=== PATIENT | male | born 1955 | race African-American/Black ===

== ENCOUNTER 2018-02-28 03:33 | Inpatient (IN) | payer MEDICAID, OTHER ==
[~2018-02-28] VITALS: Ht 182.9 cm; Wt 73.5 kg
[2018-02-28] VITALS (71 sets, daily range): BP systolic 101–172; BP diastolic 63–109
[2018-02-28 05:13] LABS: HEMATOCRIT. 41.9 % (42.0-52.0); HEMOGLOBIN. 13.7 g/dL (14.0-18.0); MEAN CORPUSCULAR VOLUME 91.7 fL (80.0-94.0); MEAN PLATELET VOLUME 7.4 fl (7.4-10.4); PLATELET 323 x1000/uL (130-400); RED BLOOD CELL COUNT 4.57 mill/uL (4.7-6.1); RED CELL DISTRIBUTION WIDTH 13.1 % (11.6-14.6)
[2018-02-28 05:19] LABS: CHLORIDE 97 mEq/L (98-107)
[2018-02-28 05:23] LABS: ETHANOL BLOOD < 10 mg/dL
[2018-02-28 06:28] LABS: PLATELET ESTIMATE NORMAL
[2018-02-28] MEDS ORDERED: HYDRALAZINE 20MG/ML VIAL IV ONE ×2 (07:15→08:00)
[2018-02-28 07:32] LABS: CLARITY URINE CLEAR (CLEAR); COLOR URINE DARK YELLOW (YELLOW); KETONES URINE 1+ (NEGATIVE); LEUKOCYTE ESTERASE URINE NEGATIVE (NEGATIVE); NITRITE URINE NEGATIVE (NEGATIVE); OCCULT BLOOD URINE NEGATIVE (NEGATIVE); PH URINE 5.5 (4.5-8.0); PROTEIN URINE 2+ (NEGATIVE); SPECIFIC GRAVITY URINE 1.028 (1.005-1.030)
[2018-02-28 07:44] LABS: *AMPHETAMINES SCREEN URINE NEGATIVE (NEGATIVE); *COCAINE SCREEN URINE PRESUMTIVE POSITIVE (NEGATIVE)
[2018-02-28 07:45] LABS: *BARBITURATES SCREEN URINE NEGATIVE (NEGATIVE); *BENZODIAZEPINES SCREEN URINE NEGATIVE (NEGATIVE); CANNABINOID URINE SCREEN NEGATIVE (NEGATIVE); METHADONE URINE SCREEN NEGATIVE (NEGATIVE); OPIATES URINE SCREEN NEGATIVE (NEGATIVE); PHENCYCLIDINE URINE SCREEN PRESUMTIVE POSITIVE (NEGATIVE)
[2018-02-28] MEDS ORDERED: MANNITOL 12.5G (25%) VIAL 50ML IV ONE (08:00)
[2018-02-28] MEDS ORDERED: DEXAMETHASONE 4MG/ML 1ML VIAL IV ONE (08:00)
[2018-02-28] MEDS ORDERED: MANNITOL 12.5G (25%) VIAL 50ML IV SCH (08:15)
[2018-02-28] MEDS ORDERED: NICARDIPINE 100 MG in SODIUM CHLORIDE 0.9% 60 ML IV PRN (08:15)
[2018-02-28] MEDS ORDERED: MANNITOL 20% 100 ML IV SCH (08:15)
[2018-02-28 08:36] LABS: INR 1.1
[2018-02-28] MEDS ORDERED: DEXT 5%/LACTATED RINGERS 1,000 ML IV SCH (09:00)
[2018-02-28] MEDS ORDERED: LEVETIRACETAM 500MG PREMIX 100 ML IV SCH (09:00)
[2018-02-28] MEDS: NITROPRUSSIDE 50 MG in SODIUM CHLORIDE 0.9% 248 ML IV PRN (10:13)
[2018-02-28] MEDS: LEVETIRACETAM 500MG in SODIUM CHLORIDE 0.9% 100ML IV SCH ×2 (10:18→20:50)
[2018-02-28] MEDS ORDERED: ONDANSETRON HCL 4MG/2ML INJ IV PRN ×2 (11:00→12:15)
[2018-02-28] MEDS ORDERED: IPRATROPIUM/ALBUTEROL 0.5-3(2.5)MG/3ML NEB INH PRN (11:00)
[2018-02-28] MEDS: ACETAMINOPHEN 650MG SUPP PR PRN (11:19)
[2018-02-28] MEDS: DEXT 5%/LACTATED RINGERS 1,000 ML IV SCH (11:20)
[2018-02-28] MEDS: PANTOPRAZOLE SODIUM 40 MG/VIAL IV SCH (11:21)
[2018-02-28] MEDS: DEXAMETHASONE 4MG/ML 1ML VIAL IV SCH ×3 (11:22→23:26)
[2018-02-28 15:34] LABS: BG BASE EXCESS 0.2 mmol/L (-2.0-2.0); BG CARBOXYHEMOGLOBIN 0.8 % (0.5-1.5); BG DEOXYHEMOGLOBIN 3.8 % (0.0-5.0); BG FRACTION INSPIRED OXYGEN 32; BG HCO3 ACT 22.2 mmol/L (22.0-26.0); BG METHEMOGLOBIN 0.3 % (0.0-1.5); BG OXYGEN SATURATION 96.2 % (92.0-98.5); BG OXYHEMOGLOBIN 95.1 % (94.0-97.0); BG PCO2 28.9 mmHg (35.0-45.0); BG PH 7.504 (7.350-7.450); BG PO2 79.4 mmHg (75.0-100.0); BG SAMPLE SITE LEFT RADIAL; BG TOTAL HEMOGLOBIN 13.3 g/dL (12.0-18.0); BG VENT MODE NASAL CANNULA
[2018-02-28] MEDS ORDERED: MANNITOL 20% (20GM/100ML) BAG 500ML PREMIX IV NR (20:15)
[2018-03-01] VITALS (93 sets, daily range): BP systolic 105–173; BP diastolic 59–98
[2018-03-01] MEDS: NITROPRUSSIDE 50 MG in SODIUM CHLORIDE 0.9% 248 ML IV PRN ×2 (00:21→12:11)
[2018-03-01] MEDS: DEXT 5%/LACTATED RINGERS 1,000 ML IV SCH ×2 (00:22→15:07)
[2018-03-01] MEDS: DEXAMETHASONE 4MG/ML 1ML VIAL IV SCH ×4 (05:08→23:42)
[2018-03-01] MEDS ORDERED: MANNITOL 20% (20GM/100ML) BAG 500ML PREMIX IV NR ×2 (06:00)
[2018-03-01 09:19] LABS: BG BASE EXCESS 0.7 mmol/L (-2.0-2.0); BG CARBOXYHEMOGLOBIN 0.7 % (0.5-1.5); BG DEOXYHEMOGLOBIN 5.3 % (0.0-5.0); BG FRACTION INSPIRED OXYGEN 28; BG METHEMOGLOBIN 0.3 % (0.0-1.5); BG OXYGEN SATURATION 94.6 % (92.0-98.5); BG OXYHEMOGLOBIN 93.7 % (94.0-97.0); BG PCO2 30.1 mmHg (35.0-45.0); BG PH 7.501 (7.350-7.450); BG PO2 71.5 mmHg (75.0-100.0); BG SAMPLE SITE RIGHT RADIAL; BG TOTAL HEMOGLOBIN 12.8 g/dL (12.0-18.0); BG VENT MODE NASAL CANNULA
[2018-03-01] MEDS: PANTOPRAZOLE SODIUM 40 MG/VIAL IV SCH (09:26)
[2018-03-01] MEDS: LEVETIRACETAM 500MG in SODIUM CHLORIDE 0.9% 100ML IV SCH ×2 (09:27→20:41)
[2018-03-01] MEDS ORDERED: LIDOCAINE HCL/EPINEPHRINE 1%-EPI 1:100,000 20 ML VIAL INFIL NR (11:45)
[2018-03-01 12:06] LABS: HEMATOCRIT. 36.4 % (42.0-52.0); HEMOGLOBIN. 11.8 g/dL (14.0-18.0); MEAN CORPUSCULAR HEMOGLOBIN 29.9 pg (28.0-32.0); MEAN CORPUSCULAR VOLUME 92.6 fL (80.0-94.0); MEAN PLATELET VOLUME 7.4 fl (7.4-10.4); PLATELET 321 x1000/uL (130-400); RED BLOOD CELL COUNT 3.94 mill/uL (4.7-6.1)
[2018-03-01 12:13] LABS: CHLORIDE 103 mEq/L (98-107)
[2018-03-01 12:21] LABS: CREATINE KINASE 586 IU/L (39-308)
[2018-03-01 12:41] LABS: HEPATITIS B SURFACE ANTIGEN NEGATIVE
[2018-03-01 13:11] LABS: HEPATITIS A AB IGM NEGATIVE (NEGATIVE)
[2018-03-01 13:29] LABS: PLATELET ESTIMATE NORMAL
[2018-03-02] VITALS (82 sets, daily range): BP systolic 106–162; BP diastolic 70–98
[2018-03-02] MEDS: DEXT 5%/LACTATED RINGERS 1,000 ML IV SCH ×2 (03:40→20:13)
[2018-03-02] MEDS: NITROPRUSSIDE 50 MG in SODIUM CHLORIDE 0.9% 248 ML IV PRN (04:01)
[2018-03-02] MEDS: DEXAMETHASONE 4MG/ML 1ML VIAL IV SCH ×3 (05:47→17:46)
[2018-03-02] MEDS: PANTOPRAZOLE SODIUM 40 MG/VIAL IV SCH (09:11)
[2018-03-02] MEDS: LEVETIRACETAM 500MG in SODIUM CHLORIDE 0.9% 100ML IV SCH ×2 (09:11→20:39)
[2018-03-02 10:11] LABS: HIV SCREEN 4G Non Reactive (Non Reactive)
[2018-03-02] MEDS ORDERED: CEFAZOLIN 1000MG PREMIX 50 ML IV SCH (12:00)
[2018-03-02] MEDS: CEFEPIME 2,000 MG in DEXT 5% WATER 100 ML IV SCH (13:01)
[2018-03-02] MEDS: METRONIDAZOLE 500 MG PREMIX 100 ML IV SCH ×2 (13:52→21:39)
[2018-03-03] VITALS (82 sets, daily range): BP systolic 108–215; BP diastolic 22–114
[2018-03-03] MEDS: DEXAMETHASONE 4MG/ML 1ML VIAL IV SCH ×4 (00:31→18:12)
[2018-03-03] MEDS: CEFEPIME 2,000 MG in DEXT 5% WATER 100 ML IV SCH ×2 (03:10→13:35)
[2018-03-03] MEDS: NITROPRUSSIDE 50 MG in SODIUM CHLORIDE 0.9% 248 ML IV PRN ×3 (03:12→14:47)
[2018-03-03] MEDS: ACETAMINOPHEN 650MG SUPP PR PRN (04:18)
[2018-03-03] MEDS: METRONIDAZOLE 500 MG PREMIX 100 ML IV SCH ×3 (05:30→21:17)
[2018-03-03 06:41] LABS: HEMOGLOBIN. 11.9 g/dL (14.0-18.0); MEAN CORPUSCULAR HEMOGLOBIN 30.5 pg (28.0-32.0); MEAN CORPUSCULAR VOLUME 92.5 fL (80.0-94.0); MEAN PLATELET VOLUME 7.3 fl (7.4-10.4); PLATELET 326 x1000/uL (130-400); RED BLOOD CELL COUNT 3.89 mill/uL (4.7-6.1); RED CELL DISTRIBUTION WIDTH 13.2 % (11.6-14.6)
[2018-03-03 06:56] LABS: PHOSPHORUS 2.4 mg/dL (2.5-4.9)
[2018-03-03] MEDS: DEXT 5%/LACTATED RINGERS 1,000 ML IV SCH (07:30)
[2018-03-03] MEDS: LEVETIRACETAM 500MG in SODIUM CHLORIDE 0.9% 100ML IV SCH ×2 (08:37→20:42)
[2018-03-03] MEDS: PANTOPRAZOLE SODIUM 40 MG/VIAL IV SCH (08:37)
[2018-03-03 12:45] LABS: PLATELET ESTIMATE NORMAL
[2018-03-03] MEDS: LISINOPRIL 40MG TABLET NG SCH (13:35)
[2018-03-03] MEDS: AMLODIPINE 10MG TABLET NG SCH (13:35)
[2018-03-03] MEDS: CLONIDINE HCL 0.3MG/24HR PATCH TD SCH (14:47)
[2018-03-03] MEDS: CLONIDINE 0.1MG TABLET PO PRN (21:10)
[2018-03-04] VITALS (94 sets, daily range): BP systolic 103–174; BP diastolic 56–103
[2018-03-04] MEDS: CEFEPIME 2,000 MG in DEXT 5% WATER 100 ML IV SCH ×2 (03:38→13:17)
[2018-03-04] MEDS: DEXAMETHASONE 4MG/ML 1ML VIAL IV SCH ×4 (05:40→18:21)
[2018-03-04] MEDS: METRONIDAZOLE 500 MG PREMIX 100 ML IV SCH ×3 (05:41→20:46)
[2018-03-04] MEDS: NITROPRUSSIDE 50 MG in SODIUM CHLORIDE 0.9% 248 ML IV PRN (05:57)
[2018-03-04] MEDS: PANTOPRAZOLE SODIUM 40 MG/VIAL IV SCH (08:35)
[2018-03-04] MEDS: AMLODIPINE 10MG TABLET NG SCH (08:36)
[2018-03-04] MEDS: CLONIDINE 0.1MG TABLET PO PRN (08:36)
[2018-03-04] MEDS: LISINOPRIL 40MG TABLET NG SCH (08:36)
[2018-03-04] MEDS: LEVETIRACETAM 500MG in SODIUM CHLORIDE 0.9% 100ML IV SCH ×2 (08:51→20:47)
[2018-03-04 08:56] LABS: HEMATOCRIT. 37.1 % (42.0-52.0); HEMOGLOBIN. 12.3 g/dL (14.0-18.0); MEAN CORPUSCULAR HEMOGLOBIN 30.6 pg (28.0-32.0); MEAN CORPUSCULAR VOLUME 92.1 fL (80.0-94.0); PLATELET 295 x1000/uL (130-400); RED BLOOD CELL COUNT 4.03 mill/uL (4.7-6.1); RED CELL DISTRIBUTION WIDTH 12.9 % (11.6-14.6)
[2018-03-04 09:02] LABS: CHLORIDE 103 mEq/L (98-107)
[2018-03-04] MEDS: LORAZEPAM 2MG/ML CPJ IV PRN (11:07)
[2018-03-04] MEDS ORDERED: SODIUM PHOS,M-BASIC-D-BASIC 10 MM in DEXT 5% WATER 246.6667 ML IV NR (13:00)
[2018-03-04 14:19] LABS: PLATELET ESTIMATE NORMAL
[2018-03-04] MEDS: ATORVASTATIN CALCIUM 10MG TABLET PO SCH (20:46)
[2018-03-05] VITALS (61 sets, daily range): BP systolic 118–157; BP diastolic 72–100
[2018-03-05] MEDS: CEFEPIME 2,000 MG in DEXT 5% WATER 100 ML IV SCH ×2 (01:10→15:37)
[2018-03-05] MEDS: METRONIDAZOLE 500 MG PREMIX 100 ML IV SCH ×3 (04:46→23:42)
[2018-03-05 05:29] LABS: HEMATOCRIT. 38.7 % (42.0-52.0); HEMOGLOBIN. 12.5 g/dL (14.0-18.0); MEAN CORPUSCULAR HEMOGLOBIN 29.8 pg (28.0-32.0); MEAN CORPUSCULAR VOLUME 91.9 fL (80.0-94.0); PLATELET 333 x1000/uL (130-400); RED BLOOD CELL COUNT 4.21 mill/uL (4.7-6.1); RED CELL DISTRIBUTION WIDTH 12.9 % (11.6-14.6)
[2018-03-05 05:34] LABS: CHLORIDE 101 mEq/L (98-107)
[2018-03-05] MEDS: DEXAMETHASONE 4MG/ML 1ML VIAL IV SCH ×4 (06:02→19:05)
[2018-03-05] MEDS: LEVETIRACETAM 500MG in SODIUM CHLORIDE 0.9% 100ML IV SCH ×2 (09:36→23:42)
[2018-03-05] MEDS: PANTOPRAZOLE SODIUM 40 MG/VIAL IV SCH (09:36)
[2018-03-05] MEDS: LISINOPRIL 40MG TABLET NG SCH (09:36)
[2018-03-05] MEDS: AMLODIPINE 10MG TABLET NG SCH (09:36)
[2018-03-05 09:44] LABS: NUCLEATED RED BLOOD CELLS 1 /100 WBC; PLATELET ESTIMATE NORMAL
[2018-03-05 11:37] LABS: PHOSPHORUS 2.6 mg/dL (2.5-4.9)
[2018-03-05] MEDS: ATORVASTATIN CALCIUM 10MG TABLET PO SCH (22:29)
[2018-03-06] VITALS (13 sets, daily range): BP systolic 106–149; BP diastolic 56–87
[2018-03-06] MEDS: DEXAMETHASONE 4MG/ML 1ML VIAL IV SCH ×4 (00:49→18:24)
[2018-03-06] MEDS: CEFEPIME 2,000 MG in DEXT 5% WATER 100 ML IV SCH ×2 (02:34→14:11)
[2018-03-06] MEDS: LORAZEPAM 2MG/ML CPJ IV PRN ×2 (02:34→23:21)
[2018-03-06] MEDS: METRONIDAZOLE 500 MG PREMIX 100 ML IV SCH ×3 (05:59→21:37)
[2018-03-06] MEDS ORDERED: CLONIDINE HCL 0.1MG/24HR PATCH TD SCH (09:00)
[2018-03-06] MEDS: PANTOPRAZOLE SODIUM 40 MG/VIAL IV SCH (10:31)
[2018-03-06] MEDS: LEVETIRACETAM 500MG in SODIUM CHLORIDE 0.9% 100ML IV SCH ×2 (10:31→21:37)
[2018-03-06] MEDS: LISINOPRIL 40MG TABLET NG SCH (16:42)
[2018-03-06] MEDS: AMLODIPINE 10MG TABLET NG SCH (16:43)
[2018-03-06] MEDS: NEOMY SULF/BACITRAC ZN/POLY OINT 28GM TOP SCH (21:37)
[2018-03-06] MEDS: ATORVASTATIN CALCIUM 10MG TABLET PO SCH (21:38)
[2018-03-07] VITALS (12 sets, daily range): BP systolic 100–146; BP diastolic 63–81
[2018-03-07] MEDS: DEXAMETHASONE 4MG/ML 1ML VIAL IV SCH ×4 (00:25→17:49)
[2018-03-07] MEDS: CEFEPIME 2,000 MG in DEXT 5% WATER 100 ML IV SCH ×2 (02:40→14:45)
[2018-03-07] MEDS: METRONIDAZOLE 500 MG PREMIX 100 ML IV SCH ×3 (05:50→21:18)
[2018-03-07] MEDS: LEVETIRACETAM 500MG in SODIUM CHLORIDE 0.9% 100ML IV SCH ×2 (08:50→20:30)
[2018-03-07] MEDS: PANTOPRAZOLE SODIUM 40 MG/VIAL IV SCH (08:50)
[2018-03-07] MEDS: AMLODIPINE 10MG TABLET NG SCH (08:51)
[2018-03-07] MEDS: LISINOPRIL 40MG TABLET NG SCH (08:55)
[2018-03-07] MEDS: NEOMY SULF/BACITRAC ZN/POLY OINT 28GM TOP SCH ×2 (09:28→20:15)
[2018-03-07] MEDS: ATORVASTATIN CALCIUM 10MG TABLET PO SCH (20:15)
[2018-03-08] VITALS (13 sets, daily range): BP systolic 107–161; BP diastolic 45–78
[2018-03-08] MEDS: DEXAMETHASONE 4MG/ML 1ML VIAL IV SCH ×5 (00:09→23:53)
[2018-03-08] MEDS: CEFEPIME 2,000 MG in DEXT 5% WATER 100 ML IV SCH ×2 (01:47→13:39)
[2018-03-08] MEDS: METRONIDAZOLE 500 MG PREMIX 100 ML IV SCH ×3 (05:23→21:51)
[2018-03-08] MEDS: AMLODIPINE 10MG TABLET NG SCH (09:18)
[2018-03-08] MEDS: LISINOPRIL 40MG TABLET NG SCH (09:18)
[2018-03-08] MEDS: PANTOPRAZOLE SODIUM 40 MG/VIAL IV SCH (09:21)
[2018-03-08] MEDS: NEOMY SULF/BACITRAC ZN/POLY OINT 28GM TOP SCH (09:21)
[2018-03-08] MEDS: LEVETIRACETAM 500MG in SODIUM CHLORIDE 0.9% 100ML IV SCH ×2 (09:49→20:46)
[2018-03-08] MEDS: ATORVASTATIN CALCIUM 10MG TABLET PO SCH (20:51)
[2018-03-09] VITALS (8 sets, daily range): BP systolic 105–142; BP diastolic 66–103
[2018-03-09] MEDS: CEFEPIME 2,000 MG in DEXT 5% WATER 100 ML IV SCH ×2 (01:50→13:10)
[2018-03-09] MEDS: DEXAMETHASONE 4MG/ML 1ML VIAL IV SCH ×3 (05:47→17:00)
[2018-03-09] MEDS: METRONIDAZOLE 500 MG PREMIX 100 ML IV SCH ×2 (05:49→13:10)
[2018-03-09] MEDS: AMLODIPINE 10MG TABLET NG SCH (08:38)
[2018-03-09] MEDS: LISINOPRIL 40MG TABLET NG SCH (08:38)
[2018-03-09] MEDS: PANTOPRAZOLE SODIUM 40 MG/VIAL IV SCH (08:41)
[2018-03-09] MEDS: LEVETIRACETAM 500MG in SODIUM CHLORIDE 0.9% 100ML IV SCH ×2 (09:22→21:46)
[2018-03-09] MEDS: ATORVASTATIN CALCIUM 10MG TABLET PO SCH (22:00)
[2018-03-10] VITALS (8 sets, daily range): BP systolic 104–128; BP diastolic 31–74
[2018-03-10] MEDS: DEXAMETHASONE 4MG/ML 1ML VIAL IV SCH ×4 (00:08→17:50)
[2018-03-10] MEDS: PANTOPRAZOLE SODIUM 40 MG/VIAL IV SCH (08:51)
[2018-03-10] MEDS: LEVETIRACETAM 500MG in SODIUM CHLORIDE 0.9% 100ML IV SCH ×2 (08:52→21:09)
[2018-03-10] MEDS: CLONIDINE HCL 0.3MG/24HR PATCH TD SCH (08:55)
[2018-03-10] MEDS: AMLODIPINE 10MG TABLET NG SCH (08:55)
[2018-03-10] MEDS: LISINOPRIL 40MG TABLET NG SCH (08:56)
[2018-03-10] MEDS: ATORVASTATIN CALCIUM 10MG TABLET PO SCH (21:09)
[2018-03-11] VITALS (8 sets, daily range): BP systolic 104–114; BP diastolic 69–78
[2018-03-11] MEDS: DEXAMETHASONE 4MG/ML 1ML VIAL IV SCH ×4 (00:13→18:14)
[2018-03-11] MEDS: PANTOPRAZOLE SODIUM 40 MG/VIAL IV SCH (08:45)
[2018-03-11] MEDS: LEVETIRACETAM 500MG in SODIUM CHLORIDE 0.9% 100ML IV SCH ×2 (08:46→21:28)
[2018-03-11] MEDS: LISINOPRIL 40MG TABLET NG SCH (08:54)
[2018-03-11] MEDS: AMLODIPINE 10MG TABLET NG SCH (08:54)
[2018-03-11] MEDS: ATORVASTATIN CALCIUM 10MG TABLET PO SCH (21:28)
[2018-03-12] MEDS: DEXAMETHASONE 4MG/ML 1ML VIAL IV SCH ×3 (00:05→11:43)
[2018-03-12 04:00] VITALS: BP 115/77
[2018-03-12 08:00] VITALS: BP 122/79
[2018-03-12] MEDS: AMLODIPINE 10MG TABLET NG SCH (09:40)
[2018-03-12] MEDS: LISINOPRIL 40MG TABLET NG SCH (09:40)
[2018-03-12] MEDS: PANTOPRAZOLE SODIUM 40 MG/VIAL IV SCH (09:40)
[2018-03-12] MEDS: LEVETIRACETAM 500MG in SODIUM CHLORIDE 0.9% 100ML IV SCH (09:40)
[2018-03-12 11:03] LABS: CHLORIDE 94 mEq/L (98-107)
[2018-03-12 11:04] LABS: HEMATOCRIT. 40.3 % (42.0-52.0); HEMOGLOBIN. 12.9 g/dL (14.0-18.0); MEAN CORPUSCULAR HEMOGLOBIN 29.4 pg (28.0-32.0); MEAN CORPUSCULAR VOLUME 92.1 fL (80.0-94.0); MEAN PLATELET VOLUME 7.5 fl (7.4-10.4); PLATELET 266 x1000/uL (130-400); RED BLOOD CELL COUNT 4.38 mill/uL (4.7-6.1); RED CELL DISTRIBUTION WIDTH 12.9 % (11.6-14.6)
[2018-03-12 12:00] VITALS: BP 106/64
[2018-03-12 13:55] LABS: PLATELET ESTIMATE NORMAL
[2018-03-12 16:00] VITALS: BP 99/58
[2018-03-12 20:00] VITALS: BP 99/56
[2018-03-13] VITALS: BP 95/55
[2018-03-13] MEDS: ATORVASTATIN CALCIUM 10MG TABLET PO SCH ×2 (00:35→21:19)
[2018-03-13] MEDS: LEVETIRACETAM 500MG in SODIUM CHLORIDE 0.9% 100ML IV SCH ×2 (00:35→09:32)
[2018-03-13 04:00] VITALS: BP 92/58
[2018-03-13] MEDS: AMLODIPINE 10MG TABLET NG SCH (09:00)
[2018-03-13] MEDS: LISINOPRIL 40MG TABLET NG SCH (09:00)
[2018-03-13] MEDS: PANTOPRAZOLE SODIUM 40 MG/VIAL IV SCH (09:32)
[2018-03-13] MEDS: DEXAMETHASONE 4MG/ML 1ML VIAL IV SCH ×2 (12:12→21:19)
[2018-03-13 20:00] VITALS: BP 104/57
[2018-03-13 20:21] VITALS: BP 104/87
== END 2018-03-13 22:50 | DRG 55 ==
LOC: ER 03:33 → MICUNO 07:58 → EDBD 07:58 → EDBEDREQ 08:10 → ENRESERV 08:28 → MICUSO 03-03 19:00 → 5EST 03-05 13:15 → 6EST 03-12 00:38
PROVIDERS: ADMIT Internal Medicine; ATTEND Internal Medicine
DX: S06.5X9A Traumatic subdural hemorrhage with loss of consciousness of unspecified duration, initial encounter (principal); J96.01 Acute respiratory failure with hypoxia; G93.40 Encephalopathy, unspecified; E87.3 Alkalosis; D64.9 Anemia, unspecified; E87.1 Hypo-osmolality and hyponatremia; I10 Essential (primary) hypertension; F14.10 Cocaine abuse, uncomplicated; F16.10 Hallucinogen abuse, uncomplicated; X58.XXXA Exposure to other specified factors, initial encounter; Y93.89 Activity, other specified; Z78.1 Physical restraint status; Y92.89 Other specified places as the place of occurrence of the external cause; Y99.8 Other external cause status
CPT/HCPCS: 36415; 36600; 71045; 80048; 80061; 80305; 82140; 82375; 82550; 82805; 82962; 83036; 83605; 83735; 84100; 84134; 84145; 84484; 85007; 85027; 86705; 86709; 86803; 86850; 86900; 87070; 87075; 87077; 87186; 87340; 87389; 92610; 93005; 93970; 96374; 99291; A6261; C9113; G0482; J0360; J0690; J0692; J1100; J1953; J2060; J2150; J3490; J7040; J7050; J7060; J7070; J7121; A4315

== ENCOUNTER 2018-08-12 17:16 | Emergency (ER) | payer OTHER ==
[~2018-08-12] VITALS: Ht 167.6 cm; Wt 72.0 kg
[2018-08-12] MEDS ORDERED: LEVETIRACETAM 500MG PREMIX 100 ML IV ONE ×2 (17:45→21:30)
[2018-08-12 18:01] LABS: BASOPHILS % 0.4 % (0.0-2.0); EOSINOPHILS % 3.2 % (0.0-5.0); HEMOGLOBIN. 12.8 g/dL (14.0-18.0); LYMPHOCYTES % 33.2 % (20.0-50.0); MEAN CORPUSCULAR HEMOGLOBIN 26.7 pg (28.0-32.0); MEAN CORPUSCULAR VOLUME 81.3 fL (80.0-94.0); MONOCYTES % 9.2 % (2.0-8.0); PLATELET 283 x1000/uL (130-400); RED BLOOD CELL COUNT 4.79 mill/uL (4.7-6.1); RED CELL DISTRIBUTION WIDTH 14.4 % (11.6-14.6)
[2018-08-12 18:05] LABS: CHLORIDE 93 mEq/L (98-107)
[2018-08-12 18:09] LABS: ETHANOL BLOOD < 10 mg/dL
[2018-08-12] MEDS ORDERED: SODIUM CHLORIDE 0.9% 1,000 ML IV ONE ×2 (18:15→21:30)
[2018-08-12 18:18] LABS: CARBAMAZEPINE < 0.5 ug/mL (4-12); PHENOBARBITAL < 2.1 ug/mL (15.0-40.0); VALPROIC ACID < 3.0 ug/mL (50-100)
[2018-08-12 21:51] LABS: CLARITY URINE CLEAR (CLEAR); COLOR URINE YELLOW (YELLOW); KETONES URINE NEGATIVE (NEGATIVE); LEUKOCYTE ESTERASE URINE NEGATIVE (NEGATIVE); NITRITE URINE NEGATIVE (NEGATIVE); OCCULT BLOOD URINE NEGATIVE (NEGATIVE); PH URINE 7.5 (4.5-8.0); PROTEIN URINE NEGATIVE (NEGATIVE); SPECIFIC GRAVITY URINE 1.008 (1.005-1.030); UROBILINOGEN URINE 0.2 E.U./dL (0.2-1.0)
[2018-08-12 22:02] LABS: *AMPHETAMINES SCREEN URINE NEGATIVE (NEGATIVE); *BARBITURATES SCREEN URINE NEGATIVE (NEGATIVE); *BENZODIAZEPINES SCREEN URINE NEGATIVE (NEGATIVE); *COCAINE SCREEN URINE NEGATIVE (NEGATIVE)
[2018-08-12 22:03] LABS: CANNABINOID URINE SCREEN NEGATIVE (NEGATIVE); METHADONE URINE SCREEN NEGATIVE (NEGATIVE); OPIATES URINE SCREEN NEGATIVE (NEGATIVE); PHENCYCLIDINE URINE SCREEN NEGATIVE (NEGATIVE)
[2018-08-12 23:38] VITALS: BP 128/79
== END 2018-08-12 23:55 | disposition short-term general hospital (02) ==
LOC: ER 17:16
DX: R56.9 Unspecified convulsions (principal); E87.1 Hypo-osmolality and hyponatremia; K21.9 Gastro-esophageal reflux disease without esophagitis; I10 Essential (primary) hypertension
CPT/HCPCS: 36415; 70450; 71045; 80053; 80156; 80165; 80184; 80185; 80305; 80320; 81003; 85025; 96365; 96366; 99285; J1953; J7030; 99284; G0480

== ENCOUNTER 2018-12-08 15:26 | Inpatient (IN) | payer MEDICAID, OTHER ==
[~2018-12-08] VITALS: Ht 167.6 cm; Wt 90.8 kg
[2018-12-08] MEDS ORDERED: LEVETIRACETAM 500MG PREMIX 100 ML IV ONE (15:45)
[2018-12-08] MEDS ORDERED: LORAZEPAM 2MG/ML CPJ IV ONE (15:45)
[2018-12-08 16:29] LABS: CHLORIDE 102 mEq/L (98-107)
[2018-12-08 16:32] LABS: BASOPHILS % 0.9 % (0.0-2.0); EOSINOPHILS % 3.4 % (0.0-5.0); HEMATOCRIT. 44.9 % (42.0-52.0); HEMOGLOBIN. 14.1 g/dL (14.0-18.0); LYMPHOCYTES % 25.4 % (20.0-50.0); MEAN CORPUSCULAR HEMOGLOBIN 25.9 pg (28.0-32.0); MEAN CORPUSCULAR VOLUME 82.2 fL (80.0-94.0); MEAN PLATELET VOLUME 7.3 fl (7.4-10.4); MONOCYTES % 8.3 % (2.0-8.0); PLATELET 242 x1000/uL (130-400); RED BLOOD CELL COUNT 5.46 mill/uL (4.7-6.1); RED CELL DISTRIBUTION WIDTH 15.9 % (11.6-14.6)
[2018-12-08 16:33] LABS: ETHANOL BLOOD < 10 mg/dL
[2018-12-08 19:01] LABS: *AMPHETAMINES SCREEN URINE NEGATIVE (NEGATIVE); *BARBITURATES SCREEN URINE NEGATIVE (NEGATIVE)
[2018-12-08 19:02] LABS: *BENZODIAZEPINES SCREEN URINE PRESUMTIVE POSITIVE (NEGATIVE); *COCAINE SCREEN URINE NEGATIVE (NEGATIVE); CANNABINOID URINE SCREEN NEGATIVE (NEGATIVE); METHADONE URINE SCREEN NEGATIVE (NEGATIVE); OPIATES URINE SCREEN NEGATIVE (NEGATIVE); PHENCYCLIDINE URINE SCREEN NEGATIVE (NEGATIVE)
[2018-12-08 21:37] VITALS: BP 139/89
[2018-12-08] MEDS ORDERED: LEVETIRACETAM 500 MG in SODIUM CHLORIDE 0.9% 100 ML IV SCH (22:30)
[2018-12-08] MEDS ORDERED: KEPP500 PO (22:51)
[2018-12-08] MEDS ORDERED: DOCU-138 PO (22:51)
[2018-12-08] MEDS ORDERED: TOPUD PO (22:51)
[2018-12-08] MEDS ORDERED: ATOR20TA PO (22:51)
[2018-12-08] MEDS ORDERED: GABA-531 PO (22:51)
[2018-12-08] MEDS ORDERED: LISI10TA5 PO (22:51)
[2018-12-08] MEDS ORDERED: ASPI-1158 PO (22:51)
[2018-12-08] MEDS ORDERED: ZOLP5TAB2 PO (22:51)
[2018-12-09] VITALS: BP 145/88
[2018-12-09] MEDS ORDERED: ACETAMINOPHEN 650MG SUPP PR PRN ×2 (00:30→02:15)
[2018-12-09] MEDS: SODIUM CHLORIDE 0.9% 1,000 ML IV SCH ×2 (00:49→14:43)
[2018-12-09] MEDS: LORAZEPAM 2MG/ML CPJ IV PRN ×2 (02:07→20:57)
[2018-12-09] MEDS ORDERED: HYDRALAZINE 20MG/ML VIAL IV PRN (02:15)
[2018-12-09] MEDS ORDERED: ONDANSETRON HCL 4MG/2ML INJ IV PRN (02:15)
[2018-12-09] MEDS ORDERED: DIPHENHYDRAMINE 50MG/ML VIAL IV PRN (02:15)
[2018-12-09] MEDS ORDERED: IPRATROPIUM/ALBUTEROL 0.5-3(2.5)MG/3ML NEB HHN PRN (02:15)
[2018-12-09 04:00] VITALS: BP 135/84
[2018-12-09] MEDS: LEVOFLOXACIN 500MG PREMIX 100 ML IV SCH (04:17)
[2018-12-09 08:00] VITALS: BP_SYST 125; BP_SYST 142; BP_DIAS 75; BP_DIAS 89
[2018-12-09] MEDS: FAMOTIDINE 20MG/2ML VIAL IV SCH ×2 (08:59→20:58)
[2018-12-09] MEDS ORDERED: LEVETIRACETAM 500 MG in SODIUM CHLORIDE 0.9% 100 ML IV SCH (09:00)
[2018-12-09] MEDS ORDERED: INFLUENZA VIRUS VACCINE(AFLURIA) 0.5ML SYR IM ONE (10:00)
[2018-12-09 12:00] VITALS: BP 136/60
[2018-12-09 15:50] LABS: CHLORIDE 104 mEq/L (98-107)
[2018-12-09 15:58] LABS: PHOSPHORUS 2.9 mg/dL (2.5-4.9)
[2018-12-09 16:00] VITALS: BP 147/69
[2018-12-09 16:31] LABS: BASOPHILS % 0.5 % (0.0-2.0); EOSINOPHILS % 1.3 % (0.0-5.0); HEMATOCRIT. 44.7 % (42.0-52.0); HEMOGLOBIN. 14.5 g/dL (14.0-18.0); LYMPHOCYTES % 17.6 % (20.0-50.0); MEAN CORPUSCULAR HEMOGLOBIN 25.9 pg (28.0-32.0); MEAN CORPUSCULAR VOLUME 79.5 fL (80.0-94.0); MEAN PLATELET VOLUME 7.7 fl (7.4-10.4); MONOCYTES % 12.1 % (2.0-8.0); NEUTROPHILS % 68.5 % (40.0-76.0); PLATELET 216 x1000/uL (130-400); RED BLOOD CELL COUNT 5.62 mill/uL (4.7-6.1); RED CELL DISTRIBUTION WIDTH 15.7 % (11.6-14.6)
[2018-12-09] MEDS: ENOXAPARIN 30MG/0.3ML SYR SUBCUT SCH (18:37)
[2018-12-09 20:00] VITALS: BP 137/87
[2018-12-09] MEDS: ATORVASTATIN CALCIUM 40MG TABLET PO SCH (20:58)
[2018-12-09] MEDS: LEVETIRACETAM 1,000 MG in SODIUM CHLORIDE 0.9% 100 ML IV SCH (20:58)
[2018-12-09] MEDS: MIRTAZAPINE 15MG TABLET PO SCH (20:58)
[2018-12-09] MEDS: GABAPENTIN 300MG CAPSULE PO SCH (22:17)
[2018-12-10] VITALS: BP 132/93
[2018-12-10 04:00] VITALS: BP 137/85
[2018-12-10] MEDS: LORAZEPAM 2MG/ML CPJ IV PRN ×3 (04:15→20:53)
[2018-12-10] MEDS: GABAPENTIN 300MG CAPSULE PO SCH ×3 (05:20→21:11)
[2018-12-10] MEDS: ENOXAPARIN 30MG/0.3ML SYR SUBCUT SCH ×2 (05:21→18:56)
[2018-12-10 08:00] VITALS: BP 134/82
[2018-12-10] MEDS: LISINOPRIL 10MG TABLET PO SCH (08:22)
[2018-12-10] MEDS: ASPIRIN 81MG TABLET PO SCH (08:23)
[2018-12-10] MEDS: LEVOFLOXACIN 500MG PREMIX 100 ML IV SCH (08:23)
[2018-12-10] MEDS: FAMOTIDINE 20MG/2ML VIAL IV SCH ×2 (08:23→20:53)
[2018-12-10] MEDS: LEVETIRACETAM 1,000 MG in SODIUM CHLORIDE 0.9% 100 ML IV SCH ×2 (09:51→22:05)
[2018-12-10 12:00] VITALS: BP 141/90
[2018-12-10 16:00] VITALS: BP 136/91
[2018-12-10 20:00] VITALS: BP 105/73
[2018-12-10] MEDS: ATORVASTATIN CALCIUM 40MG TABLET PO SCH (20:53)
[2018-12-10] MEDS: MIRTAZAPINE 15MG TABLET PO SCH (20:53)
[2018-12-11] VITALS: BP 141/84
[2018-12-11] MEDS: LORAZEPAM 2MG/ML CPJ IV PRN ×2 (02:47→11:15)
[2018-12-11 04:00] VITALS: BP 115/79
[2018-12-11] MEDS: GABAPENTIN 300MG CAPSULE PO SCH ×2 (05:35→14:00)
[2018-12-11] MEDS: ENOXAPARIN 30MG/0.3ML SYR SUBCUT SCH ×2 (05:36→18:00)
[2018-12-11 08:00] VITALS: BP 116/80
[2018-12-11] MEDS: LISINOPRIL 10MG TABLET PO SCH (08:57)
[2018-12-11] MEDS: LEVETIRACETAM 1,000 MG in SODIUM CHLORIDE 0.9% 100 ML IV SCH (08:57)
[2018-12-11] MEDS: FAMOTIDINE 20MG/2ML VIAL IV SCH (08:57)
[2018-12-11] MEDS: ASPIRIN 81MG TABLET PO SCH (08:57)
[2018-12-11] MEDS: LEVOFLOXACIN 500MG PREMIX 100 ML IV SCH (08:57)
[2018-12-11 12:00] VITALS: BP 126/84
[2018-12-11 16:00] VITALS: BP 123/72
[2018-12-11 18:34] VITALS: BP 123/72
== END 2018-12-11 19:50 | DRG 53 ==
LOC: ER 15:26 → 8WST 20:30 → ENRESERV 20:54
PROVIDERS: ADMIT Internal Medicine; ATTEND Internal Medicine
DX: G40.909 Epilepsy, unspecified, not intractable, without status epilepticus (principal); I11.9 Hypertensive heart disease without heart failure; D64.9 Anemia, unspecified; K21.9 Gastro-esophageal reflux disease without esophagitis; Z86.73 Personal history of transient ischemic attack (TIA), and cerebral infarction without residual deficits; F31.9 Bipolar disorder, unspecified; E78.00 Pure hypercholesterolemia, unspecified
CPT/HCPCS: 36415; 71045; 80048; 80305; 80320; 83036; 83735; 84100; 92610; 93005; 93970; 96365; 97162; 99291; C1893; J1200; J1650; J1953; J1956; J2060; J3490; J7030; J7050; A4315; G0480

== ENCOUNTER 2019-08-28 21:23 | Inpatient (IN) | payer MEDICAID ==
[~2019-08-28] VITALS: Ht 167.6 cm; Wt 72.6 kg
[~2019-08-28 21:23] MED LIST: ASPI-1158 PO; ATOR20TA PO; DOCU-138 PO; GABA-531 PO; KEPP500 PO; LISI10TA5 PO; TOPUD PO; ZOLP5TAB2 PO
[2019-08-28] MEDS ORDERED: SODIUM CHLORIDE 0.9% 1,000 ML IV ONE (21:37)
[2019-08-28] MEDS ORDERED: LEVETIRACETAM 1000MG/100ML 100 ML IV ONE (21:45)
[2019-08-28 22:44] LABS: BASOPHILS % 0.6 % (0.0-2.0); EOSINOPHILS % 3.9 % (0.0-5.0); HEMATOCRIT. 41.6 % (42.0-52.0); HEMOGLOBIN. 13.8 g/dL (14.0-18.0); LYMPHOCYTES % 24.1 % (20.0-50.0); MEAN CORPUSCULAR HEMOGLOBIN 28.5 pg (28.0-32.0); MEAN PLATELET VOLUME 7.6 fl (7.4-10.4); MONOCYTES % 12.9 % (2.0-8.0); NEUTROPHILS % 58.5 % (40.0-76.0); PLATELET 148 x1000/uL (130-400); RED BLOOD CELL COUNT 4.84 mill/uL (4.7-6.1); RED CELL DISTRIBUTION WIDTH 16.4 % (11.6-14.6)
[2019-08-28 22:54] LABS: INR 1.1; PROTHROMBIN TIME 11.9 sec (9.6-11.0)
[2019-08-28 23:11] LABS: CHLORIDE 105 mEq/L (98-107)
[2019-08-28 23:15] LABS: ETHANOL BLOOD < 10 mg/dL
[2019-08-29 01:06] LABS: CLARITY URINE CLEAR (CLEAR); COLOR URINE YELLOW (YELLOW); KETONES URINE NEGATIVE (NEGATIVE); LEUKOCYTE ESTERASE URINE NEGATIVE (NEGATIVE); NITRITE URINE NEGATIVE (NEGATIVE); OCCULT BLOOD URINE NEGATIVE (NEGATIVE); PROTEIN URINE NEGATIVE (NEGATIVE); UROBILINOGEN URINE 0.2 E.U./dL (0.2-1.0)
[2019-08-29 01:16] LABS: *AMPHETAMINES SCREEN URINE NEGATIVE (NEGATIVE); *BARBITURATES SCREEN URINE NEGATIVE (NEGATIVE); *BENZODIAZEPINES SCREEN URINE PRESUMTIVE POSITIVE (NEGATIVE)
[2019-08-29 01:17] LABS: *COCAINE SCREEN URINE NEGATIVE (NEGATIVE); CANNABINOID URINE SCREEN NEGATIVE (NEGATIVE); METHADONE URINE SCREEN NEGATIVE (NEGATIVE); OPIATES URINE SCREEN NEGATIVE (NEGATIVE); PHENCYCLIDINE URINE SCREEN NEGATIVE (NEGATIVE)
[2019-08-29] MEDS ORDERED: ONDANSETRON HCL 4MG/2ML INJ IV PRN (05:15)
[2019-08-29] MEDS ORDERED: MAGNESIUM/ALUMINUM HYDROXIDE/SIMETHICONE 30ML UDC PO PRN (05:15)
[2019-08-29] MEDS ORDERED: CLONIDINE 0.1MG TABLET PO PRN (05:15)
[2019-08-29] MEDS ORDERED: HYDROCODONE/ACETAMINOPHEN 5/325MG TABLET PO PRN (05:15)
[2019-08-29] MEDS ORDERED: ACETAMINOPHEN 325MG TABLET PO PRN (05:15)
[2019-08-29] MEDS ORDERED: GUAIFENESIN 200MG/10ML SUGAR FREE UDC PO PRN (05:15)
[2019-08-29] MEDS ORDERED: LORAZEPAM 2MG/ML CPJ IV PRN (05:15)
[2019-08-29] MEDS ORDERED: DOCUSATE SODIUM 100MG CAPSULE PO PRN (05:15)
[2019-08-29] MEDS: SODIUM CHLORIDE 0.45% 1,000 ML IV SCH ×2 (07:12→23:57)
[2019-08-29] MEDS: ENOXAPARIN 40MG/0.4ML SYR SUBCUT SCH (09:00)
[2019-08-29] MEDS: LISINOPRIL 10MG TABLET PO SCH (10:00)
[2019-08-29] MEDS: LEVETIRACETAM 500MG PREMIX 100 ML IV SCH ×2 (10:00→21:00)
[2019-08-29] MEDS ORDERED: CEFTRIAXONE 1 G PREMIX 50 ML IV NR (12:30)
[2019-08-29] MEDS ORDERED: AZITHROMYCIN 500 MG in DEXT 5% WATER 250 ML IV SCH (12:30)
[2019-08-29 23:50] VITALS: BP 129/70
[2019-08-30 04:00] VITALS: BP 108/59
[2019-08-30 07:30] LABS: BASOPHILS % 0.7 % (0.0-2.0); EOSINOPHILS % 3.4 % (0.0-5.0); HEMATOCRIT. 45.8 % (42.0-52.0); HEMOGLOBIN. 15.5 g/dL (14.0-18.0); LYMPHOCYTES % 26.4 % (20.0-50.0); MEAN CORPUSCULAR HEMOGLOBIN 28.7 pg (28.0-32.0); MEAN CORPUSCULAR VOLUME 84.8 fL (80.0-94.0); MEAN PLATELET VOLUME 7.8 fl (7.4-10.4); MONOCYTES % 14.2 % (2.0-8.0); NEUTROPHILS % 55.3 % (40.0-76.0); PLATELET 154 x1000/uL (130-400); RED BLOOD CELL COUNT 5.39 mill/uL (4.7-6.1); RED CELL DISTRIBUTION WIDTH 16.4 % (11.6-14.6)
[2019-08-30 07:43] LABS: CHLORIDE 108 mEq/L (98-107)
[2019-08-30 08:00] VITALS: BP 148/87
[2019-08-30] MEDS: LISINOPRIL 10MG TABLET PO SCH (09:57)
[2019-08-30] MEDS: ENOXAPARIN 40MG/0.4ML SYR SUBCUT SCH (09:58)
[2019-08-30] MEDS: LEVETIRACETAM 500MG PREMIX 100 ML IV SCH ×2 (09:58→20:46)
[2019-08-30 12:00] VITALS: BP 138/70
[2019-08-30] MEDS: AZITHROMYCIN 500 MG in DEXT 5% WATER 250 ML IV SCH (12:00)
[2019-08-30] MEDS ORDERED: DEXAMETHASONE 2MG TABLET PO SCH (13:00)
[2019-08-30] MEDS: CEFTRIAXONE 1 G PREMIX 50 ML IV SCH (15:48)
[2019-08-30] MEDS: SODIUM CHLORIDE 0.45% 1,000 ML IV SCH (15:49)
[2019-08-30 16:00] VITALS: BP 154/90
[2019-08-30 20:00] VITALS: BP 127/95
[2019-08-31] VITALS: BP 136/86
[2019-08-31 04:00] VITALS: BP 130/80
[2019-08-31 08:00] VITALS: BP 133/64
[2019-08-31] MEDS: LEVETIRACETAM 500MG PREMIX 100 ML IV SCH ×2 (09:00→09:02)
[2019-08-31] MEDS: AZITHROMYCIN 500 MG in DEXT 5% WATER 250 ML IV SCH (09:00)
[2019-08-31] MEDS: CEFTRIAXONE 1 G PREMIX 50 ML IV SCH ×2 (09:00→15:32)
[2019-08-31] MEDS: ENOXAPARIN 40MG/0.4ML SYR SUBCUT SCH (09:01)
[2019-08-31] MEDS: LISINOPRIL 10MG TABLET PO SCH (09:02)
[2019-08-31] MEDS: SODIUM CHLORIDE 0.45% 1,000 ML IV SCH (09:05)
[2019-08-31 12:00] VITALS: BP 128/79
[2019-08-31] MEDS: LEVETIRACETAM 500MG TABLET PO SCH ×2 (14:27→21:47)
[2019-08-31] MEDS ORDERED: CEFTRIAXONE SODIUM 500 MG/VIAL IM SCH (15:30)
[2019-08-31 16:00] VITALS: BP 118/86
[2019-08-31 20:00] VITALS: BP 148/85
[2019-09-01] VITALS: BP 143/79
[2019-09-01 04:00] VITALS: BP 136/72
[2019-09-01 08:00] VITALS: BP 141/91
[2019-09-01] MEDS: ENOXAPARIN 40MG/0.4ML SYR SUBCUT SCH (08:26)
[2019-09-01] MEDS: LISINOPRIL 10MG TABLET PO SCH (08:26)
[2019-09-01] MEDS: LEVETIRACETAM 500MG TABLET PO SCH ×3 (08:26→21:00)
[2019-09-01] MEDS: AZITHROMYCIN 500 MG in DEXT 5% WATER 250 ML IV SCH (08:32)
[2019-09-01 12:00] VITALS: BP 141/82
[2019-09-01 16:00] VITALS: BP 151/84
[2019-09-01] MEDS: CEFTRIAXONE 1 G PREMIX 50 ML IV SCH (16:24)
[2019-09-01] MEDS: SODIUM CHLORIDE 0.45% 1,000 ML IV SCH (16:26)
[2019-09-01 20:00] VITALS: BP 118/79
[2019-09-01] MEDS: LEVETIRACETAM 500MG PREMIX 100 ML IV SCH (21:21)
[2019-09-02] VITALS: BP 128/81
[2019-09-02 04:00] VITALS: BP 120/80
[2019-09-02 08:05] VITALS: BP 123/75
[2019-09-02] MEDS: ENOXAPARIN 40MG/0.4ML SYR SUBCUT SCH (08:33)
[2019-09-02] MEDS: LISINOPRIL 10MG TABLET PO SCH (08:33)
[2019-09-02] MEDS: LEVETIRACETAM 500MG TABLET PO SCH ×2 (08:33→21:00)
[2019-09-02] MEDS: LEVETIRACETAM 500MG PREMIX 100 ML IV SCH ×2 (08:33→22:21)
[2019-09-02] MEDS ORDERED: AZITHROMYCIN 500 MG TABLET PO SCH (09:00)
[2019-09-02] MEDS: SODIUM CHLORIDE 0.45% 1,000 ML IV SCH (11:16)
[2019-09-02 12:18] VITALS: BP 114/55
[2019-09-02] MEDS: CEFTRIAXONE 1 G PREMIX 50 ML IV SCH (15:57)
[2019-09-02 16:10] VITALS: BP 106/82
[2019-09-02 20:00] VITALS: BP 147/81
[2019-09-03] VITALS: BP 111/61
[2019-09-03] MEDS: SODIUM CHLORIDE 0.45% 1,000 ML IV SCH (02:21)
[2019-09-03 04:00] VITALS: BP 134/77
[2019-09-03 08:00] VITALS: BP 123/79
[2019-09-03] MEDS: LEVETIRACETAM 500MG PREMIX 100 ML IV SCH (09:04)
[2019-09-03] MEDS: LISINOPRIL 10MG TABLET PO SCH (09:07)
[2019-09-03] MEDS: ENOXAPARIN 40MG/0.4ML SYR SUBCUT SCH (09:08)
[2019-09-03 12:00] VITALS: BP 120/76
[2019-09-03 13:27] VITALS: BP 120/76
[2019-09-03 16:00] VITALS: BP 110/54
== END 2019-09-03 18:15 | DRG 720 ==
LOC: ER 21:23 → 7WST 08-29 00:47 → ENRESERV 08-29 20:48 → CANRESERV 08-29 20:48 → ENRESERV 08-29 21:49
PROVIDERS: ADMIT Hospitalist; ATTEND Hospitalist
DX: A41.89 Other specified sepsis (principal); U07.1 COVID-19; I25.10 Atherosclerotic heart disease of native coronary artery without angina pectoris; I10 Essential (primary) hypertension; D64.9 Anemia, unspecified; J12.89 Other viral pneumonia; G40.409 Other generalized epilepsy and epileptic syndromes, not intractable, without status epilepticus; Z79.1 Long term (current) use of non-steroidal anti-inflammatories (NSAID); Z79.82 Long term (current) use of aspirin; Z79.899 Other long term (current) drug therapy; E44.0 Moderate protein-calorie malnutrition
CPT/HCPCS: 36415; 71045; 80053; 80165; 80305; 80320; 81003; 82962; 83880; 84484; 85025; 93005; 93970; 99285; J0456; J0696; J1650; J1953; J2060; J7030; J7060; C9803-CS; G0480; U0003-CS

== ENCOUNTER 2021-06-07 10:16 | Inpatient (IN) | payer MEDICARE, MEDICAID ==
[~2021-06-07] VITALS: Ht 172.7 cm; Wt 83.5 kg
[~2021-06-07 10:16] MED LIST changes: -ASPI-1158 PO; -ATOR20TA PO; -DOCU-138 PO; +ESCI20TA PO; +FAMO-135 PO; -GABA-531 PO; +GABA300C PO; -KEPP500 PO; +LEVE1000 PO; +LISI-652 PO; -LISI10TA5 PO; -TOPUD PO; +VALP250C3 PO; -ZOLP5TAB2 PO
[2021-06-07] MEDS ORDERED: LEVETIRACETAM 1000MG PREMIX 100 ML IV ONE (10:30)
[2021-06-07 11:44] LABS: BASOPHILS % 0.6 % (0.0-2.0); EOSINOPHILS % 4.1 % (0.0-5.0); HEMATOCRIT. 42.2 % (42.0-52.0); HEMOGLOBIN. 13.9 g/dL (14.0-18.0); LYMPHOCYTES % 32.1 % (20.0-50.0); MEAN CORPUSCULAR HEMOGLOBIN 27.7 pg (28.0-32.0); MEAN CORPUSCULAR VOLUME 84.1 fL (80.0-94.0); MEAN PLATELET VOLUME 7.9 fl (7.4-10.4); MONOCYTES % 9.1 % (2.0-8.0); NEUTROPHILS % 54.1 % (40.0-76.0); PLATELET 244 x1000/uL (130-400); RED BLOOD CELL COUNT 5.01 mill/uL (4.7-6.1); RED CELL DISTRIBUTION WIDTH 13.4 % (11.6-14.6)
[2021-06-07 11:47] LABS: CHLORIDE 110 mEq/L (98-107)
[2021-06-07 11:51] LABS: ETHANOL BLOOD < 10 mg/dL
[2021-06-07] MEDS ORDERED: CLONIDINE 0.1MG TABLET PO PRN (17:30)
[2021-06-07] MEDS ORDERED: ACETAMINOPHEN 325MG TABLET PO PRN ×2 (17:30)
[2021-06-07] MEDS ORDERED: GUAIFENESIN 200MG/10ML SUGAR FREE UDC PO PRN (17:30)
[2021-06-07] MEDS ORDERED: DOCUSATE SODIUM 100MG CAPSULE PO PRN (17:30)
[2021-06-07] MEDS ORDERED: ONDANSETRON HCL 4MG/2ML INJ IV PRN (17:30)
[2021-06-07] MEDS ORDERED: KETOROLAC 15MG/ML VIAL IV PRN (17:30)
[2021-06-07] MEDS ORDERED: LORAZEPAM 2MG/ML CPJ IV PRN (17:30)
[2021-06-07] MEDS ORDERED: IPRATROPIUM/ALBUTEROL 0.5-3(2.5)MG/3ML NEB NEB PRN (17:30)
[2021-06-07] MEDS ORDERED: MAGNESIUM/ALUMINUM HYDROXIDE/SIMETHICONE 30ML UDC PO PRN (17:30)
[2021-06-07] MEDS ORDERED: NITROGLYCERIN 0.4MG TABLET SL SL PRN (17:30)
[2021-06-07] MEDS: ENOXAPARIN 40MG/0.4ML SYR SUBCUT SCH (18:00)
[2021-06-07 18:12] LABS: T4 FREE 0.9 ng/dL (0.76-1.46)
[2021-06-07 18:39] LABS: FOLIC ACID (FOLATE) SERUM 9.1 ng/mL (>5.38)
[2021-06-07] MEDS ORDERED: ZOLPIDEM TARTRATE 5MG TABLET PO PRN (21:00)
[2021-06-07 22:00] VITALS: BP 119/77
[2021-06-07] MEDS: LEVETIRACETAM 500MG TABLET PO SCH (22:09)
[2021-06-07] MEDS: FAMOTIDINE 20MG TABLET PO SCH (22:09)
[2021-06-07 23:36] LABS: CREATINE KINASE 272 IU/L (39-308)
[2021-06-07 23:37] LABS: CREATINE KINASE MB FRACTION < 1.0 ng/mL (0.5-3.6)
[2021-06-08] VITALS: BP 117/68
[2021-06-08] MEDS: VALPROIC ACID 250MG CAPSULE PO SCH ×4 (00:16→22:44)
[2021-06-08 04:00] VITALS: BP 122/71
[2021-06-08 06:57] LABS: BASOPHILS % 0.5 % (0.0-2.0); EOSINOPHILS % 3.1 % (0.0-5.0); HEMATOCRIT. 39.1 % (42.0-52.0); HEMOGLOBIN. 12.9 g/dL (14.0-18.0); LYMPHOCYTES % 29.5 % (20.0-50.0); MEAN CORPUSCULAR HEMOGLOBIN 27.9 pg (28.0-32.0); MEAN CORPUSCULAR VOLUME 84.4 fL (80.0-94.0); MEAN PLATELET VOLUME 8.2 fl (7.4-10.4); MONOCYTES % 9.9 % (2.0-8.0); PLATELET 237 x1000/uL (130-400); RED BLOOD CELL COUNT 4.63 mill/uL (4.7-6.1); RED CELL DISTRIBUTION WIDTH 13.4 % (11.6-14.6)
[2021-06-08 07:35] LABS: CHLORIDE 105 mEq/L (98-107)
[2021-06-08 07:44] LABS: PHOSPHORUS 3.5 mg/dL (2.5-4.9)
[2021-06-08 07:46] LABS: CREATINE KINASE 227 IU/L (39-308)
[2021-06-08 07:49] LABS: CREATINE KINASE MB FRACTION < 1.0 ng/mL (0.5-3.6)
[2021-06-08 08:00] VITALS: BP 109/70
[2021-06-08] MEDS: FAMOTIDINE 20MG TABLET PO SCH ×2 (09:12→22:44)
[2021-06-08] MEDS: LEVETIRACETAM 500MG TABLET PO SCH ×2 (09:12→22:45)
[2021-06-08] MEDS: ASPIRIN 325MG EC TABLET PO SCH (09:12)
[2021-06-08 12:00] VITALS: BP 119/74
[2021-06-08] MEDS: ENOXAPARIN 40MG/0.4ML SYR SUBCUT SCH (18:07)
[2021-06-08 20:00] VITALS: BP 99/57
[2021-06-09] VITALS: BP 111/79
[2021-06-09 04:00] VITALS: BP 99/72
[2021-06-09] MEDS: VALPROIC ACID 250MG CAPSULE PO SCH ×3 (06:53→20:45)
[2021-06-09 08:00] VITALS: BP 108/69
[2021-06-09] MEDS: FAMOTIDINE 20MG TABLET PO SCH ×2 (08:12→20:45)
[2021-06-09] MEDS: ASPIRIN 325MG EC TABLET PO SCH (08:12)
[2021-06-09] MEDS: LEVETIRACETAM 500MG TABLET PO SCH ×2 (08:12→20:45)
[2021-06-09 12:00] VITALS: BP 100/57
[2021-06-09 16:00] VITALS: BP 108/71
[2021-06-09] MEDS: ENOXAPARIN 40MG/0.4ML SYR SUBCUT SCH (17:07)
[2021-06-09 20:00] VITALS: BP 117/81
[2021-06-10] VITALS: BP 98/65
[2021-06-10 04:00] VITALS: BP 94/55
[2021-06-10] MEDS: VALPROIC ACID 250MG CAPSULE PO SCH ×2 (05:46→14:04)
[2021-06-10 08:00] VITALS: BP 110/52
[2021-06-10] MEDS: LEVETIRACETAM 500MG TABLET PO SCH (08:55)
[2021-06-10] MEDS: ASPIRIN 325MG EC TABLET PO SCH (08:55)
[2021-06-10] MEDS: FAMOTIDINE 20MG TABLET PO SCH (08:55)
[2021-06-10] MEDS ORDERED: LEVE500T19 MT (11:29)
[2021-06-10] MEDS ORDERED: VALP250C3 PO (11:29)
[2021-06-10 12:00] VITALS: BP 101/60
[2021-06-10 12:56] VITALS: BP 101/60
== END 2021-06-10 16:45 | disposition home health service (06) | DRG 52 ==
LOC: ER 10:16 → EDBEDREQ 12:57 → SUPCPDRO 17:21 → ENRESERV 19:31 → 6WST 21:28
PROVIDERS: ADMIT Internal Medicine; ATTEND Internal Medicine
DX: G92.8 Other toxic encephalopathy (principal); G40.409 Other generalized epilepsy and epileptic syndromes, not intractable, without status epilepticus; G93.89 Other specified disorders of brain; F32.A Depression, unspecified; I10 Essential (primary) hypertension; I25.10 Atherosclerotic heart disease of native coronary artery without angina pectoris; Z79.899 Other long term (current) drug therapy
CPT/HCPCS: 36415; 70551; 80053; 80061; 80320; 82550; 82553; 82607; 82746; 83036; 83540; 83550; 83735; 84100; 84439; 84443; 84484; 85025; 93306; 93970; 97162; 97166; 97535; 99285; J1650; G0480

== ENCOUNTER 2021-07-11 09:35 | Emergency (ER) | payer MEDICARE, MEDICAID ==
[~2021-07-11] VITALS: Ht 177.8 cm; Wt 77.0 kg
[~2021-07-11 09:35] MED LIST changes: -LEVE1000 PO; +LEVE500T19 MT
[2021-07-11] MEDS ORDERED: VALPROIC ACID 250MG CAPSULE PO ONE (10:45)
[2021-07-11] MEDS ORDERED: LEVETIRACETAM 1000MG PREMIX 100 ML IV ONE (10:45)
[2021-07-11 11:10] LABS: CHLORIDE 108 mEq/L (98-107)
[2021-07-11 11:17] LABS: ETHANOL BLOOD < 10 mg/dL; VALPROIC ACID <3.0 ug/mL ug/mL (50-100)
[2021-07-11 11:25] LABS: HEMATOCRIT. 44.2 % (42.0-52.0); HEMOGLOBIN. 14.6 g/dL (14.0-18.0); MEAN CORPUSCULAR VOLUME 84.7 fL (80.0-94.0); RED BLOOD CELL COUNT 5.22 mill/uL (4.7-6.1); RED CELL DISTRIBUTION WIDTH 13.9 % (11.6-14.6)
[2021-07-11 13:00] LABS: PLATELET ESTIMATE NORMAL
[2021-07-11] MEDS ORDERED: VALPROIC ACID 250MG CAPSULE PO NR (13:15)
[2021-07-11 15:33] VITALS: BP 118/80
== END 2021-07-11 15:34 | disposition home or self-care (01) ==
LOC: ER 09:48
DX: G40.901 Epilepsy, unspecified, not intractable, with status epilepticus (principal); I25.10 Atherosclerotic heart disease of native coronary artery without angina pectoris; F32.9 Major depressive disorder, single episode, unspecified; I10 Essential (primary) hypertension; F12.10 Cannabis abuse, uncomplicated; F17.290 Nicotine dependence, other tobacco product, uncomplicated; Z79.899 Other long term (current) drug therapy
CPT/HCPCS: 36415; 80053; 80165; 80320; 85025; 96365; 99285; J1953; G0480

== ENCOUNTER 2021-08-11 19:57 | Emergency (ER) | payer MEDICARE, MEDICAID ==
[~2021-08-11] VITALS: Ht 172.7 cm; Wt 68.0 kg
[2021-08-11] MEDS ORDERED: VALPROIC ACID 250MG CAPSULE PO ONE (20:15)
[2021-08-11 20:34] LABS: BASOPHILS % 0.5 % (0.0-2.0); EOSINOPHILS % 4.5 % (0.0-5.0); HEMATOCRIT. 42.4 % (42.0-52.0); HEMOGLOBIN. 13.6 g/dL (14.0-18.0); LYMPHOCYTES % 38.4 % (20.0-50.0); MEAN CORPUSCULAR VOLUME 84.2 fL (80.0-94.0); MEAN PLATELET VOLUME 7.9 fl (7.4-10.4); MONOCYTES % 10.6 % (2.0-8.0); PLATELET 231 x1000/uL (130-400); RED BLOOD CELL COUNT 5.03 mill/uL (4.7-6.1)
[2021-08-11 20:42] LABS: CHLORIDE 103 mEq/L (98-107)
[2021-08-11] MEDS ORDERED: LEVETIRACETAM 500MG TABLET PO ONE (20:45)
[2021-08-11 20:51] LABS: VALPROIC ACID <3.0 ug/mL ug/mL (50-100)
[2021-08-12] VITALS: BP 101/65
== END 2021-08-12 00:15 | disposition home or self-care (01) ==
LOC: ER 19:57
DX: G40.909 Epilepsy, unspecified, not intractable, without status epilepticus (principal); I25.10 Atherosclerotic heart disease of native coronary artery without angina pectoris; I10 Essential (primary) hypertension; F32.A Depression, unspecified; F12.10 Cannabis abuse, uncomplicated; Z79.01 Long term (current) use of anticoagulants
CPT/HCPCS: 36415; 80053; 80165; 85025; 93005; 99284

== ENCOUNTER 2021-11-15 14:03 | Emergency (ER) | payer MEDICARE, MEDICAID ==
[~2021-11-15] VITALS: Ht 170.2 cm; Wt 77.0 kg
[~2021-11-15 14:03] MED LIST changes: +ASPI-1160 PO; -LISI-652 PO
[2021-11-15] MEDS ORDERED: LEVETIRACETAM 500MG PREMIX 100 ML IV ONE (14:30)
[2021-11-15 14:58] LABS: BASOPHILS % 0.5 % (0.0-2.0); EOSINOPHILS % 1.8 % (0.0-5.0); HEMATOCRIT. 36.8 % (42.0-52.0); LYMPHOCYTES % 22.1 % (20.0-50.0); MEAN CORPUSCULAR HEMOGLOBIN 27.2 pg (28.0-32.0); MEAN CORPUSCULAR VOLUME 83.1 fL (80.0-94.0); MEAN PLATELET VOLUME 7.7 fl (7.4-10.4); MONOCYTES % 8.7 % (2.0-8.0); NEUTROPHILS % 66.9 % (40.0-76.0); PLATELET 248 x1000/uL (130-400); RED BLOOD CELL COUNT 4.43 mill/uL (4.7-6.1); RED CELL DISTRIBUTION WIDTH 15.7 % (11.6-14.6)
[2021-11-15 15:04] LABS: CHLORIDE 106 mEq/L (98-107)
[2021-11-15 16:30] VITALS: BP 120/77
== END 2021-11-15 19:37 | disposition home or self-care (01) ==
LOC: ER 14:03
DX: G40.909 Epilepsy, unspecified, not intractable, without status epilepticus (principal); R94.31 Abnormal electrocardiogram [ECG] [EKG]; F03.90 Unspecified dementia, unspecified severity, without behavioral disturbance, psychotic disturbance, mood disturbance, and anxiety
CPT/HCPCS: 36415; 80053; 85025; 93005; 96365; 99284; J1953

== ENCOUNTER 2021-11-15 20:41 | Emergency (ER) | payer MEDICARE, MEDICAID ==
[~2021-11-15] VITALS: Ht 177.8 cm; Wt 93.0 kg
[2021-11-15 20:43] VITALS: BP 134/83
== END 2021-11-15 22:00 | disposition home or self-care (01) ==
LOC: ER 20:41
DX: Z74.2 Need for assistance at home and no other household member able to render care (principal)
CPT/HCPCS: 99283

== ENCOUNTER 2021-12-26 09:55 | Emergency (ER) | payer MEDICARE, MEDICAID ==
[~2021-12-26] VITALS: Ht 177.8 cm; Wt 82.0 kg
[2021-12-26 11:48] LABS: BASOPHILS % 0.4 % (0.0-2.0); EOSINOPHILS % 1.8 % (0.0-5.0); HEMATOCRIT. 40.8 % (42.0-52.0); HEMOGLOBIN. 13.8 g/dL (14.0-18.0); LYMPHOCYTES % 22.5 % (20.0-50.0); MEAN CORPUSCULAR HEMOGLOBIN 27.6 pg (28.0-32.0); MEAN CORPUSCULAR VOLUME 81.6 fL (80.0-94.0); MEAN PLATELET VOLUME 7.7 fl (7.4-10.4); MONOCYTES % 8.5 % (2.0-8.0); NEUTROPHILS % 66.8 % (40.0-76.0); PLATELET 241 x1000/uL (130-400)
[2021-12-26 11:57] LABS: CHLORIDE 102 mEq/L (98-107)
[2021-12-26 12:12] LABS: ETHANOL BLOOD < 10 mg/dL
[2021-12-26] MEDS ORDERED: VALPROIC ACID 250MG CAPSULE PO NR (13:00)
[2021-12-26] MEDS ORDERED: LEVETIRACETAM 500MG TABLET PO NR (13:00)
[2021-12-26 19:14] VITALS: BP 128/71
== END 2021-12-26 19:23 | disposition home or self-care (01) ==
LOC: ER 10:34
DX: R56.9 Unspecified convulsions (principal); Z00.00 Encounter for general adult medical examination without abnormal findings; F03.90 Unspecified dementia, unspecified severity, without behavioral disturbance, psychotic disturbance, mood disturbance, and anxiety; I10 Essential (primary) hypertension; Z86.73 Personal history of transient ischemic attack (TIA), and cerebral infarction without residual deficits; F12.10 Cannabis abuse, uncomplicated; Z79.899 Other long term (current) drug therapy
CPT/HCPCS: 36415; 71045; 80053; 80185; 80320; 82140; 85025; 99285; G0480

== ENCOUNTER 2023-10-20 16:23 | Emergency (ER) | payer MEDICARE, MEDICAID ==
[~2023-10-20] VITALS: Ht 175.3 cm; Wt 70.0 kg
[~2023-10-20 16:23] MED LIST changes: +LEVE10006 PO; -LEVE500T19 MT
[2023-10-20 16:27] VITALS: BP 111/65; PULSE 77; RESP 18; TEMP 98.5; O2SAT 99
== END 2023-10-20 21:05 | disposition home or self-care (01) ==
LOC: ER 16:23
DX: R42 Dizziness and giddiness (principal); I10 Essential (primary) hypertension; F03.90 Unspecified dementia, unspecified severity, without behavioral disturbance, psychotic disturbance, mood disturbance, and anxiety; Z86.73 Personal history of transient ischemic attack (TIA), and cerebral infarction without residual deficits; Z86.59 Personal history of other mental and behavioral disorders
CPT/HCPCS: 99283

== ENCOUNTER 2023-10-23 10:00 | Inpatient (IN) | payer MEDICARE, MEDICAID ==
[~2023-10-23] VITALS: Ht 175.3 cm; Wt 79.9 kg
[2023-10-23] MEDS: IOHEXOL-300 100 ML BOTTLE ONE (10:49)
[2023-10-23 11:25] LABS: CARBON DIOXIDE 22 mEq/L (21-32); CHLORIDE 105 mEq/L (98-107); POTASSIUM 3.9 mEq/L (3.5-5.1); SODIUM 138 mEq/L (136-145)
[2023-10-23 11:26] LABS: CALCIUM 10.2 mg/dL (8.7-10.4)
[2023-10-23 11:27] LABS: INR 1.1; PROTHROMBIN TIME 11.7 sec (9.6-11.0)
[2023-10-23 11:29] LABS: TROPONIN I HIGH SENSITIVITY 6 ng/L (3.0-53)
[2023-10-23 11:30] LABS: CREATININE 1.2 mg/dL (0.6-1.3)
[2023-10-23 11:31] LABS: GLUCOSE 119 mg/dL (70-105); UREA NITROGEN BLOOD 16 mg/dL (9-23)
[2023-10-23 11:32] LABS: ALANINE AMINOTRANSFERASE 18 IU/L (10-49); ALBUMIN 4.6 g/dL (3.2-4.8)
[2023-10-23 11:33] LABS: ASPARTATE AMINOTRANSFERASE 54 IU/L (<34); BASOPHILS % 0.3 % (0.0-2.0); BILIRUBIN TOTAL 0.7 mg/dL (0.1-1.0); EOSINOPHILS % 0.9 % (0.0-5.0); HEMATOCRIT. 37.6 % (42.0-52.0); HEMOGLOBIN. 12.5 g/dL (14.0-18.0); LYMPHOCYTES % 12.1 % (20.0-50.0); MEAN CORPUSCULAR HEMOGLOBIN 27.1 pg (28.0-32.0); MEAN CORPUSCULAR HGB CONC 33.1 g/dL (31.0-37.0); MEAN PLATELET VOLUME 8.4 fl (7.4-10.4); MONOCYTES % 14.3 % (2.0-8.0); NEUTROPHILS % 72.4 % (40.0-76.0); PLATELET 198 x1000/uL (130-400); PROTEIN TOTAL 7.8 g/dL (6.0-8.3); RED BLOOD CELL COUNT 4.59 mill/uL (4.7-6.1); RED CELL DISTRIBUTION WIDTH 16.8 % (11.6-14.6); WHITE BLOOD COUNT 7.7 x1000/uL (4.5-11.0)
[2023-10-23 12:13] LABS: ETHANOL BLOOD < 10 mg/dL (<10)
[2023-10-23 14:05] LABS: TROPONIN I HIGH SENSITIVITY 8 ng/L (3.0-53)
[2023-10-23] MEDS ORDERED: NITROGLYCERIN 0.4MG TABLET SL SL PRN (15:15)
[2023-10-23] MEDS ORDERED: MAGNESIUM/ALUMINUM HYDROXIDE/SIMETHICONE 30ML UDC PO PRN (15:30)
[2023-10-23] MEDS ORDERED: KETOROLAC 15MG/ML VIAL IV PRN (15:30)
[2023-10-23] MEDS ORDERED: ACETAMINOPHEN 325MG TABLET PO PRN ×2 (15:30)
[2023-10-23] MEDS ORDERED: GUAIFENESIN 200MG/10ML SUGAR FREE UDC PO PRN (15:30)
[2023-10-23] MEDS ORDERED: IPRATROPIUM/ALBUTEROL 0.5-3(2.5)MG/3ML NEB NEB PRN (15:30)
[2023-10-23] MEDS ORDERED: CLONIDINE 0.1MG TABLET PO PRN (15:30)
[2023-10-23] MEDS ORDERED: ONDANSETRON HCL 4MG/2ML INJ IV PRN (15:30)
[2023-10-23] MEDS ORDERED: DOCUSATE SODIUM 100MG CAPSULE PO PRN (15:30)
[2023-10-23 15:55] LABS: CLARITY URINE CLEAR (CLEAR); COLOR URINE YELLOW (YELLOW); GLUCOSE URINE NEGATIVE (NEGATIVE); KETONES URINE NEGATIVE (NEGATIVE); LEUKOCYTE ESTERASE URINE NEGATIVE (NEGATIVE); NITRITE URINE NEGATIVE (NEGATIVE); OCCULT BLOOD URINE NEGATIVE (NEGATIVE); PH URINE 5.5 (4.5-8.0); PROTEIN URINE 2+ (NEGATIVE)
[2023-10-23] MEDS: ENOXAPARIN 40MG/0.4ML SYR SUBCUT SCH (16:00)
[2023-10-23 16:12] LABS: *AMPHETAMINES SCREEN URINE NEGATIVE (NEGATIVE); *BENZODIAZEPINES SCREEN URINE NEGATIVE (NEGATIVE)
[2023-10-23 16:13] LABS: *BARBITURATES SCREEN URINE NEGATIVE (NEGATIVE); *COCAINE SCREEN URINE NEGATIVE (NEGATIVE); CANNABINOID URINE SCREEN NEGATIVE (NEGATIVE); ECSTASY MDMA SCREEN URINE NEGATIVE (NEGATIVE); METHADONE URINE SCREEN NEGATIVE (NEGATIVE); OPIATES URINE SCREEN NEGATIVE (NEGATIVE); PHENCYCLIDINE URINE SCREEN NEGATIVE (NEGATIVE)
[2023-10-23 16:26] LABS: IRON 41 ug/dL (65-175)
[2023-10-23 16:29] LABS: TOTAL IRON BINDING CAPACITY 346 ug/dl (250-425)
[2023-10-23 16:32] LABS: FOLIC ACID (FOLATE) SERUM 17.15 ng/mL (>5.38); THYROID STIMULATING HORMONE 1.27 uIU/mL (0.55-4.78); VITAMIN B12 SERUM 419 pg/mL (211-911)
[2023-10-23 17:05] LABS: BACTERIA URINE 1+; RBC URINE NONE SEEN /hpf (0-2); SQUAMOUS EPITHELIAL CELL URINE FEW /lpf (RARE/1+); WBC URINE 0-2 /hpf (0-2)
[2023-10-23 17:55] LABS: LACTIC ACID 2.8 mmol/L (0.4-2.0)
[2023-10-23 22:24] LABS: CREATINE KINASE MB FRACTION 3.9 ng/mL (0.5-3.6)
[2023-10-23] MEDS: FAMOTIDINE 20MG TABLET PO SCH (23:09)
[2023-10-23] MEDS: DIVALPROEX SODIUM 250MG DR TABLET PO SCH (23:10)
[2023-10-23] MEDS: LEVETIRACETAM 500MG TABLET PO SCH (23:10)
[2023-10-23 23:23] VITALS: BP 124/72; PULSE 65; RESP 20; TEMP 37.0296
[2023-10-24] VITALS: BP 128/66; PULSE 62; RESP 18; TEMP 36.22512; O2SAT 92
[2023-10-24] MEDS: LACTATED RINGERS 1,000 ML IV SCH (02:17)
[2023-10-24 04:00] VITALS: BP 106/70; PULSE 58; RESP 18; TEMP 36.33624; O2SAT 95
[2023-10-24 06:33] LABS: CREATINE KINASE MB FRACTION 2.7 ng/mL (0.5-3.6)
[2023-10-24 06:58] LABS: CHLORIDE 107 mEq/L (98-107); POTASSIUM 3.7 mEq/L (3.5-5.1); SODIUM 138 mEq/L (136-145)
[2023-10-24 06:59] LABS: CALCIUM 9.2 mg/dL (8.7-10.4); CARBON DIOXIDE 24 mEq/L (21-32)
[2023-10-24 07:04] LABS: GLUCOSE 82 mg/dL (70-105); UREA NITROGEN BLOOD 9 mg/dL (9-23)
[2023-10-24 07:06] LABS: ALANINE AMINOTRANSFERASE 14 IU/L (10-49); ALBUMIN 3.9 g/dL (3.2-4.8); ASPARTATE AMINOTRANSFERASE 45 IU/L (<34); PHOSPHORUS 3.5 mg/dL (2.5-4.9)
[2023-10-24 07:07] LABS: BILIRUBIN TOTAL 0.9 mg/dL (0.1-1.0); PROTEIN TOTAL 6.7 g/dL (6.0-8.3)
[2023-10-24 08:00] VITALS: BP 101/62; PULSE 57; RESP 18; TEMP 36.28068; O2SAT 96
[2023-10-24 08:11] LABS: HEMATOCRIT. 36.4 % (42.0-52.0); HEMOGLOBIN. 11.6 g/dL (14.0-18.0); MEAN CORPUSCULAR HEMOGLOBIN 26.1 pg (28.0-32.0); MEAN CORPUSCULAR HGB CONC 31.9 g/dL (31.0-37.0); MEAN CORPUSCULAR VOLUME 81.7 fL (80.0-94.0); MEAN PLATELET VOLUME 8.9 fl (7.4-10.4); PLATELET 172 x1000/uL (130-400); RED BLOOD CELL COUNT 4.46 mill/uL (4.7-6.1); RED CELL DISTRIBUTION WIDTH 16.2 % (11.6-14.6)
[2023-10-24 08:29] LABS: DIFFERENTIAL COMMENT 1
[2023-10-24 12:00] VITALS: BP 115/70; PULSE 72; RESP 20; TEMP 36.50292; O2SAT 99
[2023-10-24 16:00] VITALS: BP 103/57; PULSE 58; RESP 20; TEMP 36.50292; O2SAT 98
[2023-10-24 20:00] VITALS: BP 116/65; PULSE 66; RESP 20; TEMP 37.503; O2SAT 96
[2023-10-24 21:09] LABS: ANISOCYTOSIS 1+; PLATELET ESTIMATE NORMAL
[2023-10-25] VITALS: BP 112/67; PULSE 62; RESP 20; TEMP 36.50292; O2SAT 98
[2023-10-25 04:00] VITALS: BP 113/92; PULSE 56; RESP 21; TEMP 36.78072; O2SAT 97
[2023-10-25 06:21] LABS: CHLORIDE 106 mEq/L (98-107); POTASSIUM 4.1 mEq/L (3.5-5.1); SODIUM 139 mEq/L (136-145)
[2023-10-25 06:22] LABS: BASOPHILS % 1.1 % (0.0-2.0); HEMATOCRIT. 37.8 % (42.0-52.0); HEMOGLOBIN. 12.2 g/dL (14.0-18.0); LYMPHOCYTES % 38.1 % (20.0-50.0); MEAN CORPUSCULAR HEMOGLOBIN 26.6 pg (28.0-32.0); MEAN CORPUSCULAR HGB CONC 32.4 g/dL (31.0-37.0); MEAN CORPUSCULAR VOLUME 82.1 fL (80.0-94.0); MEAN PLATELET VOLUME 8.3 fl (7.4-10.4); MONOCYTES % 13.8 % (2.0-8.0); PLATELET 190 x1000/uL (130-400); RED CELL DISTRIBUTION WIDTH 15.6 % (11.6-14.6); WHITE BLOOD COUNT 3.8 x1000/uL (4.5-11.0)
[2023-10-25 06:23] LABS: CARBON DIOXIDE 26 mEq/L (21-32)
[2023-10-25 06:24] LABS: CALCIUM 9.7 mg/dL (8.7-10.4)
[2023-10-25 06:29] LABS: GLUCOSE 79 mg/dL (70-105); UREA NITROGEN BLOOD 7 mg/dL (9-23)
[2023-10-25 06:30] LABS: ALANINE AMINOTRANSFERASE 14 IU/L (10-49); ALBUMIN 3.9 g/dL (3.2-4.8); ASPARTATE AMINOTRANSFERASE 33 IU/L (<34)
[2023-10-25 06:31] LABS: BILIRUBIN TOTAL 0.5 mg/dL (0.1-1.0); PHOSPHORUS 4.2 mg/dL (2.5-4.9); PROTEIN TOTAL 6.6 g/dL (6.0-8.3)
[2023-10-25 08:00] VITALS: BP 114/67; PULSE 53; RESP 20; TEMP 36.3918; O2SAT 98
[2023-10-25 12:00] VITALS: BP 122/71; PULSE 62; RESP 20; TEMP 36.3918; O2SAT 98
[2023-10-25 16:00] VITALS: BP 122/67; PULSE 61; RESP 18; TEMP 36.50292; O2SAT 98
[2023-10-25 20:00] VITALS: BP 122/70; PULSE 65; RESP 18; TEMP 36.55848; O2SAT 97
[2023-10-25] MEDS: ZOLPIDEM TARTRATE 5MG TABLET PO PRN (21:22)
[2023-10-26] VITALS: BP 119/78; PULSE 68; RESP 20; TEMP 36.89184; O2SAT 98
[2023-10-26 04:00] VITALS: BP 129/82; PULSE 57; RESP 16; TEMP 36.00288; O2SAT 97
[2023-10-26 08:00] VITALS: PULSE 61; RESP 18; TEMP 36.72516; O2SAT 98
[2023-10-26 12:00] VITALS: BP 101/68; PULSE 70; RESP 18; TEMP 37.05852; O2SAT 100
[2023-10-26 16:00] VITALS: BP 125/73; PULSE 65; RESP 18; TEMP 36.61404; O2SAT 98
[2023-10-26 20:00] VITALS: BP 111/82; PULSE 68; RESP 19; TEMP 36.61404; O2SAT 98
[2023-10-27] VITALS: BP 100/49; PULSE 76; RESP 19; TEMP 36.72516; O2SAT 96
[2023-10-27 04:00] VITALS: BP 107/84; PULSE 63; RESP 19; TEMP 36.72516; O2SAT 96
[2023-10-27 08:00] VITALS: BP 119/76; PULSE 62; RESP 18; TEMP 37.05852; O2SAT 96
[2023-10-27 12:00] VITALS: BP 111/69; PULSE 75; RESP 18; TEMP 36.50292; O2SAT 97
[2023-10-27 16:00] VITALS: BP 109/76; PULSE 70; RESP 18; TEMP 36.55848; O2SAT 97
[2023-10-27 20:00] VITALS: BP 125/81; PULSE 65; RESP 18; TEMP 36.6696; O2SAT 95
[2023-10-28] VITALS: BP 120/72; PULSE 77; RESP 17; TEMP 36.55848; O2SAT 94
[2023-10-28 04:00] VITALS: BP 109/73; PULSE 68; RESP 18; TEMP 36.61404; O2SAT 94
[2023-10-28 08:00] VITALS: BP 107/73; PULSE 71; RESP 18; TEMP 36.61404; O2SAT 94
[2023-10-28 12:00] VITALS: BP 105/68; PULSE 90; RESP 18; TEMP 36.55848; O2SAT 97
[2023-10-28 16:00] VITALS: BP 95/61; PULSE 78; RESP 18; TEMP 36.50292; O2SAT 98
[2023-10-28 20:00] VITALS: BP 107/74; PULSE 84; RESP 19; TEMP 36.6696; O2SAT 96
[2023-10-29] VITALS (7 sets, daily range): BP systolic 89–104; BP diastolic 45–77; PULSE 66–91; RESP 18–20; TEMP 36.50292–37.00296; O2SAT 92–100
[2023-10-30 00:41] VITALS: PULSE 76; RESP 20; TEMP 36.55848; O2SAT 99
[2023-10-30 04:12] VITALS: PULSE 80; RESP 20; TEMP 36.6696; O2SAT 99
[2023-10-30 08:00] VITALS: PULSE 84; RESP 19; TEMP 36.78072; O2SAT 99
[2023-10-30 12:00] VITALS: BP 101/64; PULSE 78; PULSE 82; RESP 17; RESP 20; TEMP 36.50292; TEMP 36.89184; O2SAT 96; O2SAT 99
[2023-10-30 16:00] VITALS: BP 109/71; PULSE 81; RESP 17; TEMP 36.72516; O2SAT 96
[2023-10-30 21:57] VITALS: BP 104/75; PULSE 79; RESP 18; TEMP 36.3918; O2SAT 95
[2023-10-31] VITALS: BP 110/68; PULSE 72; RESP 18; TEMP 36.55848; O2SAT 96
[2023-10-31 04:00] VITALS: BP 100/62; PULSE 78; RESP 19; TEMP 36.22512; O2SAT 97
[2023-10-31 08:00] VITALS: BP 116/67; PULSE 60; RESP 20; TEMP 36.72516; O2SAT 98
[2023-10-31 12:00] VITALS: BP 100/69; PULSE 80; RESP 18; TEMP 36.89184; O2SAT 97
[2023-10-31 16:00] VITALS: BP 155/80; PULSE 92; RESP 17; TEMP 36.50292; O2SAT 98
[2023-10-31 20:00] VITALS: BP 108/69; PULSE 125; RESP 16; TEMP 38.11416; O2SAT 94
[2023-11-01] VITALS: BP 100/70; PULSE 100; RESP 17; TEMP 36.9474; O2SAT 90
[2023-11-01 04:00] VITALS: BP 125/77; PULSE 102; RESP 18; TEMP 36.61404; O2SAT 96
[2023-11-01 08:00] VITALS: BP 126/76; PULSE 95; RESP 18; TEMP 36.50292; O2SAT 98
[2023-11-01 12:00] VITALS: BP 104/70; PULSE 98; RESP 18; TEMP 36.16956; O2SAT 97
[2023-11-01 16:00] VITALS: BP 126/83; PULSE 97; RESP 18; TEMP 36.33624; O2SAT 98
[2023-11-01 20:00] VITALS: BP 120/81; PULSE 103; RESP 17; TEMP 37.16964; O2SAT 92
[2023-11-02] VITALS: BP 109/79; PULSE 107; RESP 18; TEMP 37.2252; O2SAT 96
[2023-11-02 04:00] VITALS: BP 118/76; PULSE 101; RESP 18; TEMP 37.11408; O2SAT 96
[2023-11-02 08:00] VITALS: BP 123/72; PULSE 97; RESP 20; TEMP 37.61412; O2SAT 96
[2023-11-02 12:00] VITALS: BP 108/71; PULSE 88; RESP 19; TEMP 36.50292; O2SAT 98
[2023-11-02 16:00] VITALS: BP 112/73; PULSE 97; RESP 18; TEMP 36.50292; O2SAT 96
[2023-11-02 17:11] VITALS: BP 108/77; PULSE 88; TEMP 97.7; O2SAT 98
== END 2023-11-02 17:50 | disposition home health service (06) | DRG 52 ==
LOC: ER 10:14 → EDBEDREQ 12:56 → 5WST 16:59 → 8WST 22:26 → 7EST 11-02 10:31
PROVIDERS: ADMIT Internal Medicine; ATTEND Internal Medicine
DX: G92.8 Other toxic encephalopathy (principal); E87.20 Acidosis, unspecified; F03.90 Unspecified dementia, unspecified severity, without behavioral disturbance, psychotic disturbance, mood disturbance, and anxiety; I50.9 Heart failure, unspecified; G40.909 Epilepsy, unspecified, not intractable, without status epilepticus; I11.0 Hypertensive heart disease with heart failure; Z86.73 Personal history of transient ischemic attack (TIA), and cerebral infarction without residual deficits; Z79.899 Other long term (current) drug therapy
CPT/HCPCS: 36415; 70551; 71045; 80053; 80305; 80320; 81003; 82542; 82550; 82553; 82607; 82746; 82962; 83540; 83550; 83605; 83735; 84100; 84145; 84443; 84484; 85025; 93005; 93970; 97162; 97530; 99285; J1650; J7120; Q9967; G0480